=== PATIENT | female | born 1950 ===

== ENCOUNTER 2016-10-18 16:17 | Emergency (ER) | payer MEDICARE ==
--- NOTE | 2016-10-18 16:48 | ED PDOC ---
HPI: Back Time Seen by Provider: 10/18/16 16:36 Chief Complaint (Nursing): Back Pain Chief Complaint (Provider): Right lower back pain History Per: Patient History/Exam Limitations: no limitations Onset/Duration Of Symptoms: Days (x 2) Current Symptoms Are (Timing): Still Present Quality Of Discomfort: Sharp Additional Complaint(s): Georgia Morse is a 66-year-old female with a past medical history of lower back problems, hypertension, and asthma, who presents to the emergency department complaining of sharp right lower back pain radiating to the lower abdomen and right leg, ongoing since last night. Patient denies trauma or heavy lifting, nausea, vomiting, diarrhea, urinary symptoms, weakness, and paresthesias. PMD: Dr. Miguel A Guevara MD Past Medical History Reviewed: Historical Data, Nursing Documentation, Vital Signs Vital Signs: Last Vital Signs Temp 98.7 F 10/18/16 16:26 Pulse 73 10/18/16 16:26 Resp 19 10/18/16 16:26 BP 179/87 H 10/18/16 16:26 Pulse Ox 99 10/18/16 16:26 - Medical History PMH: Asthma, HTN Other PMH: Lower back problem - Surgical History Surgical History: Appendectomy, Cholecystectomy - Family History Family History: States: Unknown Family Hx - Social History Current smoker - smoking cessation education provided: No Alcohol: None Drugs: Denies - Immunization History Hx Tetanus Toxoid Vaccination: (not sure) Hx Influenza Vaccination: No Hx Pneumococcal Vaccination: No - Home Medications Home Medications: Ambulatory Orders Medication Instructions Recorded Lisinopril 20 mg PO DAILY 05/04/13 Clindamycin Hydrochloride 300 mg PO TID #30 cap 05/15/13 [Clindamycin HCl] Ibuprofen [Motrin] 600 mg PO Q8 PRN #30 tab 05/15/13 Cyclobenzaprine [Cyclobenzaprine 10 mg PO Q8 #10 tab 10/18/16 HCl] Naproxen [Naprosyn] 500 mg PO Q12H #20 tab 10/18/16 - Allergies Allergies/Adverse Reactions: Allergies Allergy/AdvReac Type Severity Reaction Status Date / Time Penicillins Allergy SHORTNESS Verified 10/18/16 16:50 OF BREATH sulfamethoxazole Allergy SHORTNESS Verified 10/18/16 16:50 [From Bactrim] OF BREATH trimethoprim [From Bactrim] Allergy SHORTNESS Verified 10/18/16 16:50 OF BREATH Review of Systems ROS Statement: Except As Marked, All Systems Reviewed And Found Negative Constitutional: Negative for: Other (Fall, heavy lifting) Gastrointestinal: Negative for: Nausea, Vomiting, Diarrhea Genitourinary Female: Negative for: Dysuria, Frequency, Incontinence Musculoskeletal: Positive for: Back Pain (Right-sided lower back pain, radiating to the lower abdomen and right leg) Neurological: Negative for: Weakness, Other (Paresthesia) Physical Exam - Reviewed Nursing Documentation Reviewed: Yes Vital Signs Reviewed: Yes - Physical Exam Appears: Positive for: Non-toxic, No Acute Distress, Uncomfortable Head Exam: Positive for: ATRAUMATIC, NORMAL INSPECTION, NORMOCEPHALIC Skin: Positive for: Normal Color, Warm, Dry Eye Exam: Positive for: EOMI, Normal appearance, PERRL Neck: Positive for: Normal, Painless ROM, Supple Cardiovascular/Chest: Positive for: Regular Rate, Rhythm Respiratory: Positive for: CNT, Normal Breath Sounds Gastrointestinal/Abdominal: Positive for: Soft. Negative for: Tenderness Back: Positive for: Muscle Spasm (Tenderness to the right paralumbar region with muscle spasms). Negative for: Vertebral Tenderness (or deformity) Neurologic/Psych: Positive for: Alert, Oriented. Negative for: Motor/Sensory Deficits (of the extremities) - ECG O2 Sat by Pulse Oximetry: 99 (RA) Pulse Ox Interpretation: Normal - Progress Re-evaluation Time: 18:27 Condition: Improved Medical Decision Making Medical Decision Making: Time: 16:49 Initial Plan: --Urine dipstick --Cyclobenzaprine 10 mg PO --Toradol 60 mg IM --Pending X-Ray LS Spine Scribe Attestation: Documented by Dipti Marquez, acting as a scribe for Dell Barry MD Provider Scribe Attestation: All medical record entries made by the Scribe were at my direction and personally dictated by me. I have reviewed the chart and agree that the record accurately reflects my personal performance of the history, physical exam, medical decision making, and the department course for this patient. I have also personally directed, reviewed, and agree with the discharge instructions and disposition. Disposition - Clinical Impression Clinical Impression: Acute back pain - Patient ED Disposition Is Patient to be Admitted: No - Disposition Referrals: Corrie Hahn MD [Staff Provider] - Disposition: Routine/Home Disposition Time: 18:27 Condition: FAIR Prescriptions: Cyclobenzaprine [Cyclobenzaprine HCl] 10 mg PO Q8 #10 tab Naproxen [Naprosyn] 500 mg PO Q12H #20 tab Instructions: Acute Low Back Pain (ED) Print Language: BURMESE
--- NOTE | 2016-10-18 18:16 | RAD ---
PROCEDURE: Radiographs of the Lumbar Spine. HISTORY: trauma r/o fx COMPARISON: No prior. FINDINGS: BONES: There is degenerative 3 mm anterior listhesis of L4 on L5. There is straightening of the lumbar spine with loss of normal lumbar lordosis. There is no acute fracture or spondylolysis. There is diffuse bone demineralization. DISC SPACES: There is multilevel degenerative disc disease with anterior osteophytes, reduced disc heights and multilevel facet arthropathy, worse at L1-2. OTHER FINDINGS: There are no pathologic soft tissue calcifications. Both sacroiliac joints are normal IMPRESSION: No acute fracture, spondylolysis or traumatic spondylolisthesis.
[2016-10-19 11:50] VITALS: BP 179/87; PULSE 73; RESP 19; TEMP 98.7; O2SAT 99
== END 2016-10-18 19:03 | disposition home or self-care (01) ==
LOC: H.ER 16:17
DX: M54.9 Dorsalgia, unspecified (principal); I10 Essential (primary) hypertension; J45.909 Unspecified asthma, uncomplicated; Z88.0 Allergy status to penicillin
CPT/HCPCS: 72110; 96372; 99283; J1885